=== PATIENT | male | born 1970 | race Caucasian/White ===

== ENCOUNTER → 2020-08-01 14:08 | Outpatient (CLI) | payer OTHER, SELFPAY ==
--- NOTE | 2020-08-01 14:19 | CT_ITS ---
STUDY: CT ABDOMEN AND PELVIS WITHOUT CONTRAST REASON FOR EXAM: Male, 49 years old. SUDDEN ONSET RIGHT FLANK PAIN -- NO HX [place] RADIATION DOSAGE (If Supplied By Facility): CTDIvol = ( 22.35 ) mGy, DLP = ( 1351.80 ) mGycm TECHNIQUE: Transaxial images were obtained from the dome of the diaphragm to the symphysis pubis without oral contrast, and without intravenous contrast. Sagittal and coronal images were reconstructed. Individualized dose optimization techniques were used for this CT. COMPARISON: None. FINDINGS: There is a 5 mm noncalcified pleural-based nodule in the posterior medial segment of the right lower lobe. A six-month follow-up examination is recommended. The visualized portions of the heart are within normal limits. There is decreased attenuation of the liver consistent with steatosis. Normal gallbladder and extrahepatic biliary system. There is a benign calcified granuloma of the spleen. Normal pancreas. Normal bilateral adrenal glands. Normal right kidney. There is a 5.6 cm x 4.6 cm lobulated cyst in the mid inferior pole of the left kidney. Normal visualized stomach. Normal small intestine. Normal colon. The appendix is visualized and appears normal. There is scattered atherosclerotic calcification of the abdominal aorta, without a demonstrated aneurysm. Normal inferior vena cava. There is borderline retroperitoneal lymphadenopathy with enlarged nodes no greater than 10mm in the short axis diameter. The urinary bladder is not adequately distended for evaluation. There are prostatic calcifications. The prostate measures 3.9 cm x 4.6 cm. Small benign-appearing bilateral inguinal lymph nodes. Normal abdominal wall. Normal osseous structures. CT/Abdomen/Pelvis without Cont IMPRESSION: Lobulated cyst in the mid inferior pole of the left kidney. No evidence of urinary tract obstruction. Electronically Signed: Ayush Hollingsworth, at 14:43 EDT , Service support ,
== END ==
PROVIDERS: PCP Family Medicine; Referring Provider Nurse Practitioner Adult Health; Visit Provider Nurse Practitioner Adult Health
DX: N20.1 Calculus of ureter (principal)
CPT/HCPCS: 74176

== ENCOUNTER → 2020-09-16 14:44 | Outpatient (CLI) | payer OTHER, SELFPAY ==
[2020-09-02 11:21] VITALS: BMI 36.6
--- NOTE | 2020-09-16 14:46 | CT_ITS ---
STUDY: CT CHEST WITHOUT CONTRAST REASON FOR EXAM: Male, 50 years old. LUNG NODULE FOLLOW UP RADIATION DOSAGE (If Supplied By Facility): CTDIvol = ( 20.72 ) mGy, DLP = ( 760.30 ) mGycm TECHNIQUE: Transaxial imaging was performed without the administration of intravenous contrast material. Multiplanar coronal and sagittal images were reformatted. Individualized dose optimization techniques were used for this CT. COMPARISON: Comparison is made with prior CT scan of the abdomen dated 08/01/2020. FINDINGS: There is a 3.7 mm calcified granuloma in the peripheral lateral aspect of the right upper lobe. There is a 5.1 mm noncalcified nodule in the posterior medial segment of the right lower lobe. This abuts the pleural surface. This corresponds to the finding on prior CT scan of the abdomen. There is no demonstrated pleural abnormality. Normal heart and pericardium. Normal mediastinum. Normal hilar regions. Normal unenhanced pulmonary arteries. Normal aorta arch and descending thoracic aorta. Normal osseous structures. There is no demonstrated abnormality of the visualized upper abdomen. CT/Chest without Contrast IMPRESSION: 3.7 mm calcified granuloma in the peripheral lateral aspect of the right upper lobe. Stable 5.1 mm noncalcified nodule in the posterior medial segment of the right lower lobe. This abuts the pleural surface. A follow-up CT scan of the thorax is recommended in 12 months Electronically Signed: Ayush Hollingsworth, at 9:55 EDT , Service support ,
== END ==
PROVIDERS: PCP Family Medicine; Referring Provider Internal Medicine Critical Care Medicine; Visit Provider Internal Medicine Critical Care Medicine
DX: R91.1 Solitary pulmonary nodule (principal)
CPT/HCPCS: 71250

== ENCOUNTER → 2021-09-29 13:41 | Outpatient (CLI) | payer OTHER, SELFPAY ==
--- NOTE | 2021-09-29 13:48 | CT_ITS ---
STUDY: CT CHEST WITHOUT CONTRAST REASON FOR EXAM: Male, 51 years old. Lung Nodule follow-up. RADIATION DOSAGE (If Supplied By Facility): CTDIvol = ( 20.14 ) mGy, DLP = ( 795.05 ) mGycm TECHNIQUE: Transaxial imaging was performed without the administration of intravenous contrast material. Multiplanar coronal and sagittal images were reformatted. Individualized dose optimization techniques were used for this CT. COMPARISON: Comparison is made with prior study done 09/16/2020. FINDINGS: Small benign-appearing bilateral axillary lymph nodes. 3.7 mm calcified granuloma is seen in the peripheral lateral aspect of right upper lobe. Stable 5.1 mm noncalcified nodule in the posterior medial segment of the right lower lobe as seen on axial image #62. This abuts the pleural surface. There is no demonstrated pleural abnormality. Normal heart and pericardium. There are multiple small lymph nodes within the mediastinum, which are normal in size and morphology most compatible with reactive lymph hyperplasia. Normal hilar regions. Normal unenhanced pulmonary arteries. Normal aorta arch and descending thoracic aorta. There are degenerative changes of the thoracic spine. There is no demonstrated abnormality of the visualized upper abdomen. CT/Chest without Contrast IMPRESSION: Stable examination. Electronically Signed: Ayush Hollingsworth MD at 15:14 EST , Service support ,
== END ==
PROVIDERS: PCP Family Medicine; Visit Provider Internal Medicine Critical Care Medicine
DX: R91.1 Solitary pulmonary nodule (principal)
CPT/HCPCS: 71250